=== PATIENT | female | born 1945 | race Caucasian/White ===

== ENCOUNTER → 2017-02-07 | Outpatient (CLI) | payer MEDICARE, SELFPAY | PROVIDERS: Family Provider Family Medicine; Visit Provider Family Medicine | DX: Z12.31 Encounter for screening mammogram for malignant neoplasm of breast (principal) | CPT/HCPCS: 77067; G0202 ==

== ENCOUNTER → 2018-01-21 10:07 | Outpatient (CLI) | payer MEDICARE, SELFPAY ==
--- NOTE | 2018-01-21 10:11 | MM_ITS ---
MM Dig screening mamm BI w/CAD ORDERING PHYSICIAN : Millie Rouse MD PATIENT AGE: 72 years GENDER: Female COMPARISON: January 2017 and December INDICATION: ITS.REASON: SCREENING no hormones no new complaints. Family history. Maternal aunts with breast cancer age 30 and 50 TECHNIQUE: Standard CC and MLO images were obtained. R2 CAD reviewed. FINDINGS: Lower density breast bilaterally. Moderate diffuse fatty replacement with minimal residual fibroglandular elements towards upper outer quadrant. No suspicious nor dominant mass. No suspicious calcifications of either breast . Follow-up one year adequate . IMPRESSION: Stable negative bilateral mammogram. No new areas of concern BI-RADS Category: 1 Negative RECOMMENDED FOLLOW-UP: 1YR 1 YEAR FOLLOW-UP (A letter has been sent to the patient regarding results of the study.)
--- NOTE | 2018-01-21 10:11 | XR_ITS ---
XR DEXA axial skeleton HISTORY: ITS.REASON: POSTMENOPAUSAL ORDERING PHYSICIAN: Millie Rouse MD PATIENT AGE: 72 years COMPARISON: 01/05/2016 FINDINGS: The BMD measured at the Right femoral neck is 0.882 g/cm squared with a T score of -1.1. This is considered Osteopenic according to the World Health Organization criteria. Fracture risk is Moderate. Treatment is advised. L1 L4 density has a T score of 0.6 which is increased by 3%. The main density of the hips is not significant change IMPRESSION: Osteopenia with marked fracture risk. Recommend follow-up exam January 2020
== END ==
PROVIDERS: PCP Family Medicine; Visit Provider Family Medicine
DX: Z12.31 Encounter for screening mammogram for malignant neoplasm of breast (principal); Z78.0 Asymptomatic menopausal state
CPT/HCPCS: 77067; 77080

== ENCOUNTER → 2019-01-15 11:01 | Outpatient (CLI) | payer MEDICARE, SELFPAY ==
--- NOTE | 2019-01-15 11:07 | XR_ITS ---
PROCEDURE: XR KNEE RT 3V CLINICAL INDICATION: RT KNEE PAIN COMPARISON: No exams were available for comparison FINDINGS: No fracture or dislocation. No lytic or blastic change. There is normal mineralization. The joint spaces are well-preserved. No significant degenerative/arthritic changes. No erosive changes evident. Other findings:Along the medial aspect of the distal femur at the medial femoral condyle there is a curvilinear calcific density and may represent a Stieda lesion from prior medial collateral ligament injury IMPRESSION: Old avulsion fracture of the medial femoral condyle consistent with prior medial collateral ligament injury Dictated by: Froilan Purcell MD 01/15/2019 12:19 Electronically signed by Froilan Purcell MD in [place] 01/15/2019 12:19
== END ==
PROVIDERS: PCP Physician Assistant; Visit Provider Physician Assistant
DX: M25.561 Pain in right knee (principal)
CPT/HCPCS: 73562

== ENCOUNTER → 2019-01-27 07:49 | Outpatient (CLI) | payer MEDICARE, SELFPAY ==
--- NOTE | 2019-01-27 07:51 | MM_ITS ---
PROCEDURE: MM DIG SCREENING MAMM BI W/CAD CLINICAL INDICATION: SCREENING There is a history of breast cancer patient's paternal aunts 1 diagnosed at age 30 the other diagnosed at age 50. COMPARISON: [facility] DIG MAMM-SCREEN ALEXA from 01/05/2016 [facility] DIG MAMM-SCREEN ALEXA W/CAD from 02/07/2017 [facility] MM Dig screening mamm BI w/CAD from 01/21/2018 TECHNIQUE: Standard CC and MLO images were obtained. R2 CAD reviewed. FINDINGS: Breasts are composed primarily of fat with minimal fibroglandular densities in the subareolar regions bilaterally. There are 4 mole markers on the right breast. There is faint arterial calcification left breast. There are small nodes seen low in both axilla. There is no suspicious lesion and no suspicious microcalcifications. IMPRESSION: Stable exam with no suspicious lesions seen BI-RAD Category: 2 Benign Finding(s) FOLLOW-UP: 1YR 1 Year Follow-up (A letter has been sent to the patient regarding results of the study.) Dictated by: Dr. Raj Santana MD 01/28/2019 17:[address] Raj Santana MD in [place] 01/28/2019 17:02
== END ==
PROVIDERS: PCP Physician Assistant; Visit Provider Physician Assistant
DX: Z12.31 Encounter for screening mammogram for malignant neoplasm of breast (principal)
CPT/HCPCS: 77067

== ENCOUNTER → 2020-08-05 08:06 | Outpatient (CLI) | payer MEDICARE, SELFPAY ==
[2020-08-05 10:42] LABS: Alanine Aminotransferase 25 U/L (12-78); Albumin Level 4.3 g/dl (3.5-5.0); Albumin/Globulin Ratio 1.6 (1.1-1.8); Alkaline Phosphatase 71 U/L (38-126); Anion Gap 10.2 mEq/L (5-15); Aspartate Amino Transferase 49 U/L (14-36); Bilirubin,Total 0.7 mg/dl (0.2-1.3); Blood Urea Nitrogen 10 mg/dl (7-17); Calcium 9.2 mg/dl (8.4-10.2); Carbon Dioxide 29 mmol/L (22.0-30.0); Chloride 101 mmol/L (98-107); Chol/HDL Ratio 3.2 (1-3.5); Cholesterol 212 mg/dl (140-200); Estimated Glomerular Filt Rate 82 ml/min (>60); GFR (African American) 99 ML/MIN (>60); Globulin 2.7 g/dL (1.3-3.2); Glucose 91 mg/dl (74-100); HDL Cholesterol 67 mg/dl (40-60); Potassium 5.2 mmoL/L (3.5-5.1); Sodium 135 mmol/L (136-145); Triglycerides 92 mg/dl (30-150); VLDL Cholesterol 18 mg/dL (0-40)
[2020-08-05 10:53] LABS: Direct LDL Cholesterol 124.59 mg/dL (100-129)
[2020-08-05 11:13] LABS: Thyroid Stimulating Hormone 3.46 uIU/mL (0.465-4.68)
== END ==
PROVIDERS: Visit Provider Physician Assistant
DX: E03.9 Hypothyroidism, unspecified (principal); I10 Essential (primary) hypertension; E78.2 Mixed hyperlipidemia
CPT/HCPCS: 36415; 80053; 80061; 84443

== ENCOUNTER → 2021-02-03 07:32 | Outpatient (CLI) | payer MEDICARE, SELFPAY ==
[2021-02-03 08:32] LABS: Chloride 103 mmol/L (98-107); Potassium 5.1 mmoL/L (3.5-5.1); Sodium 140 mmol/L (136-145)
[2021-02-03 08:34] LABS: Alanine Aminotransferase 24 U/L (12-78); Alkaline Phosphatase 75 U/L (38-126); Aspartate Amino Transferase 40 U/L (14-36); Bilirubin,Total 0.5 mg/dl (0.2-1.3); Blood Urea Nitrogen 11 mg/dl (7-17); Estimated Glomerular Filt Rate 82 ml/min (>60); GFR (African American) 99 ML/MIN (>60)
[2021-02-03 08:35] LABS: Albumin Level 4.4 g/dl (3.5-5.0); Albumin/Globulin Ratio 1.8 (1.1-1.8); Anion Gap 13.1 mEq/L (5-15); Calcium 9.4 mg/dl (8.4-10.2); Carbon Dioxide 29 mmol/L (22.0-30.0); Chol/HDL Ratio 3.3 (1-3.5); Cholesterol 226 mg/dl (140-200); Globulin 2.5 g/dL (1.3-3.2); Glucose 90 mg/dl (74-100); HDL Cholesterol 68 mg/dl (40-60); Total Protein,Serum 6.9 g/dl (6.3-8.2); Triglycerides 103 mg/dl (30-150); VLDL Cholesterol 21 mg/dL (0-40)
[2021-02-03 08:46] LABS: Direct LDL Cholesterol 132.47 mg/dL (100-129)
[2021-02-03 08:52] LABS: Free T4 (Free Thyroxine) 0.89 ng/dl (0.78-2.19)
[2021-02-03 09:06] LABS: Thyroid Stimulating Hormone 4.05 uIU/mL (0.465-4.68)
== END ==
PROVIDERS: Visit Provider Physician Assistant
DX: E78.2 Mixed hyperlipidemia (principal); E03.9 Hypothyroidism, unspecified; I10 Essential (primary) hypertension
CPT/HCPCS: 36415; 80053; 80061; 84439; 84443

== ENCOUNTER → 2021-02-10 09:39 | Outpatient (CLI) | payer MEDICARE, SELFPAY ==
--- NOTE | 2021-02-10 09:42 | MM_ITS ---
PROCEDURE INFORMATION: Exam: MG Bilateral Screening 3D Mammography Exam date and time: 02/10/2021 9:42 AM Age: 75 years old Clinical indication: Encounter for screening mammogram for malignant neoplasm of breast TECHNIQUE: Imaging protocol: Bilateral screening tomosynthesis and 2D mammography including computer-aided detection (CAD) when performed. COMPARISON: 1. MG MM DIG SCREENING MAMM BI W/CAD 01/27/2019 8:11 AM 2. MG [facility] MM Dig screening mamm BI w/CAD 01/21/2018 10:29 AM FINDINGS: MAMMOGRAPHY: Breast composition: The breast tissue is composed of scattered areas of fibroglandular density. Mass: None. Architectural distortion: None. Calcifications: No suspicious calcifications. Asymmetric density: None. Skin thickening: None. Axillary adenopathy: None. IMPRESSION: No mammographic evidence of malignancy. Annual screening is recommended unless otherwise clinically indicated. ASSESSMENT: BI-RADS Category 1: Negative
--- NOTE | 2021-02-10 09:42 | XR_ITS ---
PROCEDURE: XR DEXA AXIAL SKELETON CLINICAL HISTORY: POST MENOPAUSAL COMPARISON: CR DEXAAX XR DEXA axial skeleton from 01/21/2018 FINDINGS: The right hip BMD is 0.763 with a T-score of -0.8. The left hip BMD is 0.776 with a T-score of -0.7. The lumbar spine BMD is 1.043 with a T-score of 0.0. Previously the lowest density was in the right femoral neck with a T-score of -1.1 IMPRESSION: This patient is considered normal according to the World Health Organization criteria. Fracture risk is low. Based on these results a follow-up exam is recommended in 2 year. Dictated by: Froilan Purcell MD 02/10/2021 12:26 Froilan Purcell MD in [place] 02/10/2021 12:26
== END ==
PROVIDERS: PCP Physician Assistant; Visit Provider Physician Assistant
DX: Z12.31 Encounter for screening mammogram for malignant neoplasm of breast (principal); Z78.0 Asymptomatic menopausal state
CPT/HCPCS: 77063; 77067; 77080

== ENCOUNTER → 2022-03-27 16:15 | Outpatient (CLI) | payer MEDICARE, SELFPAY ==
--- NOTE | 2022-03-27 16:18 | MM_ITS ---
PROCEDURE INFORMATION: Exam: MG Bilateral Screening 3D Mammography Exam date and time: 03/27/2022 4:10 PM Age: 77 years old Clinical indication: Screening examination. History of maternal aunts with breast cancer. TECHNIQUE: Imaging protocol: Bilateral Screening tomosynthesis and 2D mammography including computer-aided detection (CAD) when performed. COMPARISON: 1. MG MM DIG SCREENING MAMM BI W/CAD 02/10/2021 10:08 AM 2. MG MM DIG SCREENING MAMM BI W/CAD 01/27/2019 8:11 AM 3. MG [facility] MM Dig screening mamm BI w/CAD 01/21/2018 10:29 AM 4. MG [facility] DIG MAMM-SCREEN ALEXA W/CAD 02/07/2017 9:36 AM FINDINGS: MAMMOGRAPHY: Breast composition: There are scattered areas of fibroglandular density. Mass: No suspicious mass. Architectural distortion: None. Calcifications: No suspicious calcifications. Asymmetric density: None. Skin thickening: None. Axillary adenopathy: None. IMPRESSION: No mammographic evidence of malignancy. Annual screening is recommended unless otherwise clinically indicated. ASSESSMENT: BI-RADS Category 1: Negative
== END ==
PROVIDERS: PCP Physician Assistant; Visit Provider Physician Assistant
DX: Z12.31 Encounter for screening mammogram for malignant neoplasm of breast (principal)
CPT/HCPCS: 77063; 77067

== ENCOUNTER 2022-09-07 13:41 | Emergency (ER) | payer MEDICARE, SELFPAY ==
[2022-09-07 13:49] VITALS: BP 141/92; PULSE 130; RESP 18; TEMP 37; O2SAT 93; BMI 30.2
[2022-09-07 14:03] VITALS: BP 131/85; PULSE 123; RESP 22; O2SAT 94
--- NOTE | 2022-09-07 14:42 | HMH.EDGENADL ---
Discharge Plan Disposition Chief Complaint: Medical Clearance Referrals Follow up/Referrals: Laura Martinez PA [Primary Care Provider] - See instructions Activity Restrictions/Add. Instructions Additional Instructions/Restrictions: At this time is felt you are safe for discharge. If you develop symptoms requiring evaluation please return. Clinical Impressions Clinical Impression: Encounter for medical clearance for patient hold Discharge ED Provider: Mason Beckman General Adult HPI General Chief complaint: Medical Clearance Stated complaint: Medical paul Time Seen by Provider: 09/07/22 14:15 Mode of Arrival: Ambulatory Source of Information: Patient Limitations: No Limitations Description of Symptoms (Recalled from ER Triage Doc. by RN): Presents under PD custody with request of medical clearance. Pt reports she was arrested for DUI . Pt denies any health concerns/complaints at this time. History of Present Illness HPI narrative: Patient is a 77-year-old female with no significant past medical history who presents emergency department for evaluation of medical clearance in police custody. Patient denies trauma, chest pain, abdominal pain, anything requiring acute evaluation at this time. Related Data Allergies Allergy/AdvReac Type Severity Reaction Status Date / Time No Known Allergies Allergy Verified 09/07/22 13:52 [facility] Disclaimer: The information contained in this section may have been updated after the patient was seen, as this information can be updated by other users. Social History Smoking Status: Never smoker alcohol intake: current current occupational status: other Travel in the last 8 weeks: None ROS Obtained: Yes Systems reviewed as appropriate & no additional complaints except as documented Physical Exam General General appearance: alert and in no apparent distress Head Head exam: atraumatic and normocephalic Eye Eye exam: Present PERRL and EOMI ENT ENT exam: Present mucous membranes moist Neck Neck exam: Present normal inspection Chest Chest inspection: Present normal inspection and symmetric chest wall rise Respiratory Respiratory exam: Present normal lung sounds bilaterally; Absent respiratory distress Cardiovascular Cardiovascular exam: Present normal rhythm and tachycardia Abdominal Exam Abdominal exam: Present soft; Absent tenderness Extremities Exam Extremities exam: Present normal inspection Neurological Exam Neurological exam: Present alert and oriented X3 Psychiatric Psychiatric exam: Present normal affect Skin Skin exam: Present warm and dry Medical Decision Making Baltazar Inquiry Pt receiving controlled substance: No Vital Signs: 09/07/22 13:49 09/07/22 14:03 Temperature 98.6 F Temperature Source Oral Pulse Rate 123 H Pulse Rate [Right] 130 H Respiratory Rate 18 22 Blood Pressure 131/85 Blood Pressure [Right Arm] 141/92 H Blood Pressure Mean 100 Blood Pressure Mean [Right Arm] 108 02 Sat by Pulse Oximetry 93 L 94 L Oxygen Delivery Method Room Air Medical Decision Narrative: Patient is a 77-year-old female with past medical history described above who presents emergency department for evaluation of medical clearance. Patient is hemodynamically stable without acute complaints upon arrival. Patient is tachycardic however states that she is extremely nervous after being arrested. No history of trauma, no acute complaints, physical exam unconcerning. Given this patient is appropriate for discharge at this time. Critical Care Time Critical Care Time Critical Care Time: No Attestation: On 09/07/22, the high probability of a clinically significant, sudden or life threatening deterioration of the following system(s) required my full and direct attention, intervention and personal management. The time I documented below is in addition to time spent performing reported procedures but includes the following listed in this criti
[2022-09-07 15:15] VITALS: BP 138/100; PULSE 114; RESP 16; TEMP 37; O2SAT 95
== END 2022-09-07 15:21 ==
PROVIDERS: Emergency Provider Emergency Medicine; PCP Physician Assistant
DX: Z02.89 Encounter for other administrative examinations (principal)
CPT/HCPCS: 99281

== ENCOUNTER 2023-09-03 11:20 | Outpatient (CLI) | payer MEDICARE, SELFPAY ==
--- NOTE | 2023-09-03 11:37 | XR_ITS ---
FINAL REPORT CLINICAL HISTORY: SOB; pre op FINDINGS: PA and lateral views of the chest are obtained. There is no prior exam for comparison. The cardiac and mediastinal silhouettes are within normal limits. There are low lung volumes. Lungs are otherwise clear. There is no pleural effusion, pneumothorax, or acute osseous abnormality. IMPRESSION: No radiographic evidence of acute cardiac or pulmonary disease. Reviewed, Interpreted and Dictated by Lula Beck MD Transcribed by Kenia Abraham Authenticated and [facility]
[2023-09-03 11:56] LABS: Basophils % 0.8 % (0.1-2.0); Eosinophils # 0.1 K/mm3 (0.0-0.4); Eosinophils % 1.3 % (0.1-12.0); Hematocrit 34.9 % (37.0-47.0); Hemoglobin 11.5 g/dL (12.2-16.2); Lymphocytes # 1.2 K/mm3 (0.7-4.5); Lymphocytes % 25.9 % (10-50); Mean Corpuscular HGB Conc 32.9 g/dL (31.8-35.4); Mean Corpuscular Hemoglobin 32.1 pg (27.0-31.2); Mean Corpuscular Volume 97.5 fl (81-99); Mean Platelet Volume 8.6 fl (7.4-10.4); Monocytes # 0.5 K/mm3 (0.1-1.0); Neutrophils # 2.8 K/mm3 (1.8-7.8); Neutrophils % 61.9 % (37.0-80.0); Platelet Count 268 K/mm3 (142-424); Red Blood Count 3.58 M/mm3 (4.20-5.40); Red Cell Distribution Width 16.4 % (11.5-17.5); White Blood Count 4.5 K/mm3 (4.8-10.8)
[2023-09-03 11:57] LABS: Hemoglobin A1C 4.8 % (4.0-6.0)
--- NOTE | 2023-09-03 12:23 | ECG_ITS ---
APPROVED REPORT Exam: Resting ECG HR:71 bpm ECG Measurements Heart Rate 71 AXES AK 151 P 48 QRSd 86 QRS 7 QT 394 T 18 QTc 416 Conclusion SINUS RHYTHM LOW QRS VOLTAGE IN PRECORDIAL LEADS [QRS DEFLECTION < 1.0 mV IN CHEST LEADS] MINIMAL VOLTAGE CRITERIA FOR LVH with late r wave progression ABNORMAL ECG UNCONFIRMED REPORT Electronically signed by : Moe Hutchins MD 09/05/2023 07:12:19
[2023-09-03 12:46] LABS: Alanine Aminotransferase 14 U/L (12-78); Albumin Level 4.4 g/dl (3.5-5.0); Albumin/Globulin Ratio 1.8 (1.1-1.8); Alkaline Phosphatase 80 U/L (38-126); Anion Gap 12.3 mEq/L (5-15); Aspartate Amino Transferase 28 U/L (14-36); Bilirubin,Total 0.4 mg/dl (0.2-1.3); Blood Urea Nitrogen 11 mg/dl (7-17); Calcium 9.6 mg/dl (8.4-10.2); Carbon Dioxide 24 mmol/L (22.0-30.0); Chloride 103 mmol/L (98-107); Estimated Glomerular Filt Rate 70 ml/min (>60); GFR (African American) 84 ML/MIN (>60); Globulin 2.5 g/dL (1.3-3.2); Glucose 94 mg/dl (74-100); Potassium 4.3 mmoL/L (3.5-5.1); Sodium 135 mmol/L (136-145); Total Protein,Serum 6.9 g/dl (6.3-8.2)
== END 2023-09-03 23:59 | disposition home or self-care (01) ==
PROVIDERS: PCP Physician Assistant; Visit Provider Physician Assistant
DX: Z01.818 Encounter for other preprocedural examination (principal); Z79.899 Other long term (current) drug therapy
CPT/HCPCS: 36415; 71046; 80053; 83036; 85025; 93005

== ENCOUNTER 2023-09-12 13:38 | Outpatient (CLI) | payer MEDICARE, SELFPAY ==
--- NOTE | 2023-09-12 | CA_ITS ---
APPROVED REPORT EXAM: Comprehensive 2D, Doppler, and color-flow Echocardiogram Vat Washer: Thuy Castanon RDCS Ht: 5 ft 3 in Wt: 156lbs BSA: 1.74 BP: 131/85 mmHg Indications: ABN EKG,HTN 2D Dimensions Left Atrium 3.20 cm F: 2.7 - 3.8 LVOT 1.86 cm (M/F) 1.5-2.5 M-Mode Dimensions RVDd 1.48 cm (0.9-2.6) LVDd 5.21 cm (3.5-5.7) Ao Diam 3.35 cm (2.0-3.7) LVDs 4.03 cm (3.5-5.7) IVSd 0.57 cm (0.6-1.1) PWd 0.53 cm (0.6-1.1) EF (Teich) 45.20% FS 22.60% EDV (Teich) 130.10 mL ESV (Teich) 71.30 mL LV Diastology E Decel Time 303 (160-240 msec) E/A Ratio 0.6 MED E' 6.8 (>= 7 cm/sec) E'/MED E' Ratio 7.93 (<= 14) LAT E' 10.2 (>= 10 cm/sec) E/LAT E' Ratio 5.28 (<= 14) Mitral Valve MV E Max Jaquan. 54.0 (40-130 cm/s) MV A Velocity 89.0 (40-130 cm/s) E/A Ratio 0.61 MV Decel. Time 303 (160-240 ms) Tricuspid Valve TR P. Velocity 250.00 cm/s RAP Estimate 10.00 mmHg RVSP 34.90 mmHg Left Ventricle The left ventricle is normal size. The left ventricular systolic function is normal. The left ventricular ejection fraction is within the normal range. There is increased LV wall thickness. There is normal LV segmental wall motion. The left ventricular diastolic function is normal. LVEF is 55%. Right Ventricle Right ventricle is mildly dilated. The right ventricular systolic function is normal. Atria The left atrium size is normal. The right atrium size is normal. There is no Doppler evidence of interatrial shunt. Aortic Valve The aortic valve is mildly thickened. Mild aortic regurgitation. There is no aortic valvular stenosis. Mitral Valve The mitral valve leaflets are mildly thickened. No evidence of mitral valve stenosis. Trace mitral regurgitation. Tricuspid Valve The tricuspid valve leaflets are thin and pliable. Mild tricuspid regurgitation. RVSP is 25-30 mmHg. Pulmonic Valve The pulmonary valve is normal in structure. Trace pulmonic regurgitation. Great Vessels The aortic root is normal in size. The ascending aorta is not well-visualized. IVC is normal in size and collapses >50% with inspiration. Pericardium Trivial, anterior pericardial effusion is present. No echo indications of tamponade. Other Information Study Quality: Technically Difficult Conclusion Technically difficult study due to poor acoustic windows. Normal biventricular systolic function. Mild RV dilation. Mild AI, mild TR. Trivial anterior pericardial effusion. No echo indications of tamponade. Electronically signed by : Margie Arora MD 09/12/2023 22:23:44
== END 2023-09-12 23:59 | disposition home or self-care (01) ==
LOC: RT 13:39
PROVIDERS: PCP Physician Assistant; Visit Provider Physician Assistant
DX: R94.31 Abnormal electrocardiogram [ECG] [EKG] (principal); I51.7 Cardiomegaly; I31.39 Other pericardial effusion (noninflammatory)
CPT/HCPCS: 93306

== ENCOUNTER 2024-01-30 10:00 | Outpatient (RCR) | payer MEDICARE, SELFPAY | END 2024-01-30 23:59 | disposition home or self-care (01) | LOC: PT 10:00 | PROVIDERS: Visit Provider Orthopaedic Surgery Adult Reconstructive Orthopaedic Surgery | DX: M25.561 Pain in right knee (principal); Z98.890 Other specified postprocedural states | CPT/HCPCS: 97016; 97110; 97116; 97163; 97530 ==

== ENCOUNTER 2024-06-16 11:00 | Outpatient (RCR) | payer MEDICARE, SELFPAY | END 2024-06-16 23:59 | disposition home or self-care (01) | LOC: PT 11:00 | PROVIDERS: Visit Provider Orthopaedic Surgery Adult Reconstructive Orthopaedic Surgery | DX: Z96.652 Presence of left artificial knee joint (principal) | CPT/HCPCS: 97016; 97110; 97163; 97530 ==

== ENCOUNTER 2024-07-10 11:00 | Outpatient (RCR) | payer MEDICARE, SELFPAY | END 2024-07-10 23:59 | disposition home or self-care (01) | LOC: PT 11:00 | PROVIDERS: Visit Provider Orthopaedic Surgery Adult Reconstructive Orthopaedic Surgery | DX: Z47.89 Encounter for other orthopedic aftercare (principal); Z96.652 Presence of left artificial knee joint | CPT/HCPCS: 97110; 97530 ==